=== PATIENT | female | born 1950 | race Caucasian/White ===

== ENCOUNTER 2019-05-26 12:00 | Day surgery (SDC) | payer MEDICARE, OTHER ==
[~2019-05-26] VITALS: Ht 162.6 cm; Wt 86.6 kg
[~2019-05-26 12:00] MED LIST: AKWA TEARS; ARTIFICIAL TEARS; CALC1TAB80 PO; CALC1TAB90 PO; CALCIUM PO; CYAN100080 PO; CYANOCOBALAMIN; DICL75TA2 PO; EXEM25TA PO; EXEMESTANE; IBUP800T48 PO; LORAZEPAM; SERT100T PO; SERTRALINE; SIMV40TA3 PO; VITAMIN D3; VITAMIN E; ZOLOFT PO
[2019-05-26 12:57] VITALS: Ht 162.6 cm; Wt 86.6 kg
[2019-05-26 13:40] VITALS: BP 171/81; PULSE 65; RESP 18
[2019-05-26] MEDS ORDERED: MIDAZOLAM 1 MG/ML 2 ML INJ ONE ×2 (14:28)
[2019-05-26] MEDS ORDERED: FENTAnyl 50 MCG/ML VIAL ONE (14:28)
[2019-05-26 15:27] VITALS: BP 151/66; RESP 20
== END 2019-05-26 15:57 | disposition home or self-care (01) ==
LOC: SDS 12:00 → GIL 15:57
PROVIDERS: ATTEND Internal Medicine
DX: K57.30 Diverticulosis of large intestine without perforation or abscess without bleeding (principal)
CPT/HCPCS: 45378; J2250; J3010